=== PATIENT | female | born 1970 | race Caucasian/White ===

== ENCOUNTER 2025-01-01 08:39 | Day surgery (SDC) | payer BC, OTHER ==
[~2025-01-01 08:39] MED LIST: Lactated Ringers 1,000 ML IV SCH
[2025-01-01] MEDS: Lactated Ringers 1,000 ML IV SCH (09:08)
[2025-01-01] MEDS ORDERED: Propofol 200 MG/20 ML SDV ONE (10:19)
[2025-01-01] MEDS ORDERED: fentaNYL 100 MCG/2 ML SDV ONE (10:20)
== END 2025-01-01 13:16 | disposition home or self-care (01) ==
LOC: VM.SDS 08:39
PROVIDERS: ATTEND Family Medicine
DX: Z12.11 Encounter for screening for malignant neoplasm of colon (principal); R19.5 Other fecal abnormalities; D12.0 Benign neoplasm of cecum; D12.6 Benign neoplasm of colon, unspecified; K57.30 Diverticulosis of large intestine without perforation or abscess without bleeding; K64.8 Other hemorrhoids; F41.1 Generalized anxiety disorder; F33.0 Major depressive disorder, recurrent, mild; Z79.899 Other long term (current) drug therapy; Z88.5 Allergy status to narcotic agent
CPT/HCPCS: 00811; J2704; J3010; J7120